=== PATIENT | male | born 1995 | race Caucasian/White ===

== ENCOUNTER 2017-09-15 19:33 | Emergency (ER) | payer OTHER ==
[2017-09-15] MEDS: CEPHALEXIN 500 MG CAP PO (21:08)
[2017-09-15] MEDS: TRIMETHOPRIM/SULFAMETHOX (DS) TAB PO (21:08)
[2017-09-15] MEDS: IBUPROFEN 600 MG TAB PO (21:08)
== END 2017-09-15 23:09 | disposition home or self-care (01) ==
LOC: FTE 19:33
DX: L03.116 Cellulitis of left lower limb (principal); L03.115 Cellulitis of right lower limb; R40.2412 Glasgow coma scale score 13-15, at arrival to emergency department
CPT/HCPCS: 73610; 73630; 99284-25

== ENCOUNTER 2017-10-03 05:04 | Emergency (ER) | payer OTHER | END 2017-10-03 06:21 | disposition home or self-care (01) | LOC: FTE 05:04 | DX: L03.114 Cellulitis of left upper limb (principal) | CPT/HCPCS: 99284; Z7502 ==

== ENCOUNTER 2017-10-19 09:06 | Emergency (ER) | payer OTHER ==
[2017-10-19] MEDS: DEXAMETHASONE 10 MG/ML 1 ML INJ IV (09:44)
[2017-10-19] MEDS: DIPHENHYDRAMINE 50 MG INJ IV (09:44)
[2017-10-19] MEDS: FAMOTIDINE 20 MG INJ IV (10:28)
== END 2017-10-19 11:28 | disposition home or self-care (01) ==
LOC: FTE 09:06
DX: F14.10 Cocaine abuse, uncomplicated (principal); F11.10 Opioid abuse, uncomplicated; F17.210 Nicotine dependence, cigarettes, uncomplicated
CPT/HCPCS: 96374; 96375; 99284-25